=== PATIENT | male | born 1965 | race Hispanic/Latino ===

== ENCOUNTER 2024-11-26 16:53 | Emergency (ER) | payer OTHER ==
--- NOTE | 2024-11-26 18:11 | RAD REPORT ---
EXAMINATION: Abdomen Pelvis Wo Contrast CLINICAL INDICATION: Male, 59 years old.left flank trauma TECHNIQUE: CT abdomen and pelvis was performed, without IV contrast, as per department protocol. Axia l, sagittal and coronal reconstructions were obtained. One or more of the following dose reduction techniques were used: Automated exposure control, adjustment of the mA and/or kV according to the pat ient size, and/or iterative reconstruction. Unless otherwise specified, incidental findings do not require dedicated imaging follow-up. [id number]. IV CONTRAST: Not administered. COMPARISON: No prior exams FINDINGS: The lack of intravenous contrast limits the sensitivity of this exam for evaluation of solid visceral organs, vascular structures, and retroperitoneum. LOWER CHEST: No acute process identified.No significant pericardial effusion. Mild circumferential th ickening of the distal esophagus which could reflect esophagitis. Aortic valve calcifications. UPPER GI: No significant abnormality. LIVER: No significant focal abnormality. GALLBLADDER/BILE DUCTS: No biliary ductal dilatation.? PANCREAS: No mass, ductal dilation, or milly-pancreatic fluid. SPLEEN: Unremarkable. ADRENALS: No adrenal masses. KIDNEYS AND URETERS: No hydronephrosis.Hyperdense cyst at the upper pole left kidney is benign. Inter mediate attenuation interpolar left renal lesion measures 2.1 cm. ABDOMINAL AORTA AND OTHER VESSELS: Normal caliber aorta and IVC. PERITONEUM: No abnormal free fluid. No free air. LYMPH NODES: No pathologic lymphadenopathy. ABDOMINAL WALL: Fat containing umbilical hernia. SMALL BOWEL/COLON: Small bowel has normal course and caliber. No colonic wall thickening or pericolon ic inflammatory changes.Normal appendix URINARY BLADDER: Nonspecific circumferential bladder wall thickening. REPRODUCTIVE ORGANS: Moderate prostatomegaly. MUSCULOSKELETAL: No acute or suspicious osseous abnormality. ADDITIONAL FINDINGS: None. IMPRESSION: No evidence of significant trauma to the abdomen or pelvis. Bladder wall thickening likely related to chronic bladder obstruction but cannot exclude superimposed infection or inflammation. Correlate with urinalysis. Intermediate attenuation left renal lesion that is incompletely evaluated without IV contrast. Recomm end nonemergent renal protocol CT or MRI for further evaluation.
--- NOTE | 2024-11-26 18:18 | ER ---
Nurse's Notes [facility] Name: El Silva Age: 59 yrs Sex: Male : 1965 Arrival Date: 11/26/2024 Time: 16:53 Bed 6 Private MD: Diagnosis: Left flank contusion, unknown left renal lesion Presentation: 11/26 16:54 Chief complaint: EMS states: Иван gave out and fell onto left side, c/o left flank hb pain 8/10. Coronavirus screen: At this time, the client does not indicate any symptoms associated with coronavirus-19. Ebola Screen: No symptoms or risks identified at this time. Initial Sepsis Screen: Does the patient meet any 2 criteria? No. Patient's initial sepsis screen is negative. Does the patient have a suspected source of infection? No. Patient's initial sepsis screen is negative. Risk Assessment: Do you want to hurt yourself or someone else? Patient reports no desire to harm self or others. Onset of symptoms was November 26, 2024. 16:54 Method Of Arrival: EMS: [facility] hb 16:54 Acuity: HARRIETT 4 hb Historical: - Allergies: 16:56 No Known Allergies; hb - Home Meds: 17:00 lisinopril 5 mg oral tablet daily [Active]; rosuvastatin oral [Active]; hb - PMHx: 16:56 High Cholesterol; hb 17:00 HTN; hb - PSHx: 17:00 None; hb - Immunization history:: Adult Immunizations up to date. - Infectious Disease History:: Denies. - Social history:: Smoking status: Patient denies any tobacco usage or history of. Screenin:[address] [facility] ED Fall Risk Assessment (Adult) History of falling in the last 3 months, hb including since admission No falls in past 3 months (0 pts) Confusion or Disorientation No (0 pts) Intoxicated or Sedated No (0 pts) Impaired Gait No (0 pts) Mobility Assist Device Used No (0 pt) Altered Elimination No (0 pt) Score/Fall Risk Level 0 - 2 = Low Risk Oriented to surroundings, Maintained a safe environment, Educated pt \T\ family on fall prevention, incl call for assistance when getting out of bed. Abuse screen: Denies threats or abuse. Denies injuries from another. Nutritional screening: No deficits noted. Tuberculosis screening: No symptoms or risk factors identified. Assessment: 17:16 General: Appears in no apparent distress. Behavior is calm, cooperative. Pain: Pain hb currently is 8 out of 10 on a pain scale. Neuro: Level of Consciousness is awake, alert, obeys commands, Oriented to person, place, time, situation. Cardiovascular: Patient's skin is warm and dry. Respiratory: Respiratory effort is even, unlabored, Respiratory pattern is regular, symmetrical. GI: No signs and/or symptoms were reported involving the gastrointestinal system. : No signs and/or symptoms were reported regarding the genitourinary system. EENT: No signs and/or symptoms were reported regarding the EENT system. Derm: Skin is pink, warm \T\ dry. Musculoskeletal: Reports left flank pain. 18:42 Reassessment: Patient appears in no apparent distress at this time. Patient and/or hb family updated on plan of care and expected duration. Pain level reassessed. Patient is alert, oriented x 3, equal unlabored respirations, skin warm/dry/pink. Vital Signs: 16:54 BP 140 / 90; Pulse 65; Resp 16; Temp 97.9; Pulse Ox 100% on R/A; Weight 108.86 kg; hb Height 6 ft. 4 in. ; Pain 8/10; 16:54 Body Mass Index 29.21 (108.86 kg, 193.04 cm) hb 16:54 Pain Scale: Adult hb ED Course: 16:54 Patient arrived in ED. hb 16:55 Ervin Lorenzo MD is Attending Physician. sp3 16:56 Triage completed. hb 17:01 Arm band placed on. hb 17:16 Cori Griggs, RN is Primary Nurse. hb 17:18 Patient has correct armband on for positive identification. Provided Education on: call hb light, NPO. 17:52 CT Abd/Pelvis - Without Contrast In Process Unspecified. EDMS 18:42 No provider procedures requiring assistance completed. Patient did not have IV access hb during this emergency room visit. Administered Medications: No medications were administered Medication: 17:16 VIS not applicable for this client. hb Outcome: 18:18 Discharge ordered by . sp3 18:42 Discharged to home ambulatory, hb 18:42 Condition: stable 18:42 Discharge instructions given to patient, Instructed on discharge instructions, follow up and referral plans. medication usage, Demonstrated understanding of instructions, follow-up care, medications, 18:42 Patient left the ED. hb Signatures: Dispatcher [employer] EDMS Cori Griggs RN RN Ervin Lorenzo MD MD sp3 Corrections: (The following items were deleted from the chart) 17:01 16:56 Home Meds: Simvastatin Oral; hb hb 17:02 16:54 Pulse 65bpm; Resp 16bpm; Pulse Ox 100% RA; Temp 97.9F; 108.86 kg; Height 6 ft. 4 hb in.; BMI: 29.2; Pain 8/10, Adult; hb
--- NOTE | 2024-11-26 18:18 | EDPHYS ---
Physician Documentation [facility] Name: El Silva Age: 59 yrs Sex: Male : 1965 Arrival Date: 11/26/2024 Time: 16:53 Bed 6 Private MD: ED Physician Ervin Lorenzo HPI: 11/26 17:01 This 59 yrs old Male presents to ER via EMS with complaints of Fall Injury. sp3 17:01 59-year-old male with history of hypertension and hyperlipidemia presents via [facility] sp3 for mechanical fall due to floor malfunction with patient landing on his left flank complaining of left flank pain. He denies head injury, loss of consciousness, injury or pain in any other body part. No bleeding reported. Remainder of ROS negative.. Historical: - Allergies: 16:56 No Known Allergies; hb - Home Meds: 17:00 lisinopril 5 mg oral tablet daily [Active]; rosuvastatin oral [Active]; hb - PMHx: 16:56 High Cholesterol; hb 17:00 HTN; hb - PSHx: 17:00 None; hb - Immunization history:: Adult Immunizations up to date. - Infectious Disease History:: Denies. - Social history:: Smoking status: Patient denies any tobacco usage or history of. ROS: 17:03 Constitutional: Negative for fever, chills, and weight loss, Eyes: Negative for injury, sp3 pain, redness, and discharge, ENT: Negative for injury, pain, and discharge, Neck: Negative for injury, pain, and swelling, Cardiovascular: Negative for chest pain, palpitations, and edema, Respiratory: Negative for shortness of breath, cough, wheezing, and pleuritic chest pain, : Negative for injury, bleeding, discharge, and swelling, MS/Extremity: Negative for injury and deformity, Skin: Negative for injury, rash, and discoloration, Neuro: Negative for headache, weakness, numbness, tingling, and seizure, Psych: Negative for depression, anxiety, suicide ideation, homicidal ideation, and hallucinations, Allergy/Immunology: Negative for hives, rash, and allergies, Endocrine: Negative for neck swelling, polydipsia, polyuria, polyphagia, and marked weight changes, Hematologic/Lymphatic: Negative for swollen nodes, abnormal bleeding, and unusual bruising, 17:03 All other systems are negative, Exam: 17:04 Constitutional: This is a well developed, well nourished patient who is awake, alert, sp3 and in no acute distress. Head/Face: Normocephalic, atraumatic. Eyes: Pupils equal round and reactive to light, extra-ocular motions intact. Lids and lashes normal. Conjunctiva and sclera are non-icteric and not injected. Cornea within normal limits. Periorbital areas with no swelling, redness, or edema. Neck: Trachea midline, no thyromegaly or masses palpated, and no cervical lymphadenopathy. Supple, full range of motion without nuchal rigidity, or vertebral point tenderness. No Meningismus. Chest/axilla: Normal chest wall appearance and motion. Nontender with no deformity. No lesions are appreciated. Cardiovascular: Regular rate and rhythm with a normal S1 and S2. No gallops, murmurs, or rubs. Normal PMI, no JVD. No pulse deficits. Respiratory: Lungs have equal breath sounds bilaterally, clear to auscultation and percussion. No rales, rhonchi or wheezes noted. No increased work of breathing, no retractions or nasal flaring. Abdomen/GI: Soft, non-tender, with normal bowel sounds. No distension or tympany. No guarding or rebound. No evidence of tenderness throughout. Skin: Warm, dry with normal turgor. Normal color with no rashes, no lesions, and no evidence of cellulitis. MS/ Extremity: Pulses equal, no cyanosis. Neurovascular intact. Full, normal range of motion. Neuro: Awake and alert, GCS 15, oriented to person, place, time, and situation. Cranial nerves II-XII grossly intact. Motor strength 5/5 in all extremities. Sensory grossly intact. Cerebellar exam normal. Normal gait. Psych: Awake, alert, with orientation to person, place and time. Behavior, mood, and affect are within normal limits. 17:04 Back: Left flank pain to palpation mainly in the musculature. No bony tenderness. Left hip normal exam., Vital Signs: 16:54 BP 140 / 90; Pulse 65; Resp 16; Temp 97.9; Pulse Ox 100% on R/A; Weight 108.86 kg; hb Height 6 ft. 4 in. ; Pain 8/10; 16:54 Body Mass Index 29.21 (108.86 kg, 193.04 cm) hb 16:54 Pain Scale: Adult hb MDM: 16:55 Medical Screening Exam initiated sp3 17:04 Data reviewed: vital signs, nurses notes, radiologic studies. ED course: 51-year-old sp3 male with left flank injury at work. Patient declines pain medication at this time. Will assess with CT scan of the abdomen pelvis noncontrast. Differential diagnosis includes intra-abdominal organ injury, intra-abdominal bleeding, abdominal wall contusion, abdominal wall hematoma, among others. Disposition pending workup and patient course with probable discharge home if workup negative.. 18:17 ED course: Negative from a trauma standpoint. Left renal lesion noted and I have sp3 discussed this with the patient he will follow-up with PCP regarding contrast study or MRI.. 11/26 16:59 Order name: CT Abd/Pelvis - Without Contrast; Complete Time: 18:16 sp3 11/26 16:59 Order name: NPO; Complete Time: 17:16 sp3 Administered Medications: No medications were administered Disposition Summary: 11/26/24 18:18 Discharge Ordered Notes: Location: Home sp3 Condition: Stable sp3 Diagnosis - Left flank contusion, unknown left renal lesion sp3 Followup: sp3 - With: Private Physician - When: Upon discharge from the Emergency Department - Reason: Continuance of care Discharge Instructions: - Discharge Summary Sheet sp3 - Contusion sp3 Forms: - Work release form lg3 - Medication Reconciliation Form sp3 - Antibiotic Education sp3 - Prescription Opioid Use sp3 - Patient Portal Instructions sp3 - Leadership Thank You Letter sp3 Signatures: Dispatcher [employer] Cori Lopez RN RN hb Patel, Setul, MD MD sp3 Corrections: (The following items were deleted from the chart) 17: 16:56 Home Meds: Simvastatin Oral; hb hb
[2024-11-26 19:04] VITALS: BP 140/90; TEMP 97.9; O2SAT 100
== END 2024-11-26 18:42 | disposition home or self-care (01) ==
LOC: ER 16:53
DX: S30.1XXA Contusion of abdominal wall, initial encounter (principal); N28.89 Other specified disorders of kidney and ureter; I10 Essential (primary) hypertension; E78.00 Pure hypercholesterolemia, unspecified
CPT/HCPCS: 74176; 99283